=== PATIENT | male | born 1935 | race Caucasian/White ===

== ENCOUNTER → 2022-12-23 | Outpatient (CLI) | payer MEDICARE ==
[2022-12-23 15:06] LABS: African American GFR (CKD) 87 (>60 ml/min/1.73 sqM); Blood Urea Nitrogen 20 mg/dL (9-20); Non-African American GFR(CKD) 75 (>60 ml/min/1.73 sqM)
--- NOTE | 2022-12-24 09:08 | CT ---
EXAMINATION TYPE: CT ChestAbdPelvis w con DATE OF EXAM: 12/23/2022 COMPARISON: 11/06/2011 HISTORY: Small cell, B cell lymphoma. Leukopenia. CT DLP: 896.4 mGycm Automated exposure control for dose reduction was used. CONTRAST: CT scan of the chest, abdomen and pelvis is performed with Oral Contrast and with IV Contrast, patien t injected with 100 ml mL of Isovue 300. FINDINGS: LUNGS: There is groundglass dependent areas of attenuation most compatible with dependent atelectasis . Mild centrilobular emphysematous changes are seen. There is interlobular septal thickening seen com patible with pulmonary fibrosis. There are multiple 3 mm or less subpleural micronodules. There is a nodule seen superior segment rig ht lower lobe axial image 32 measuring 4 mm. MEDIASTINUM: There are no greater than 1 cm hilar or mediastinal lymph nodes. There is shotty hilar mediastinal adenopathy measuring short axis less than 1 cm. Heart is enlarged and cardiac leads are n oted. No significant atherosclerotic change of aorta. The aorta measures a maximal dimension 3.4 cm. Main pulmonary trunk measures 2.2 cm. No pericardial effusion is seen. LIVER/GB: A low attenuation liver suggestive of hepatic steatosis. Liver measures 18 cm in length com patible with mild hepatomegaly. PANCREAS: No significant abnormality is seen. SPLEEN: Spleen measures 13 cm at the upper limits of normal. ADRENALS: No significant abnormality is seen. KIDNEYS: No hydronephrosis or nephrolithiasis. Bilateral simple appearing renal cysts are noted. The bladder is nondistended with mild wall thickening. BOWEL: No significant abnormality is seen. Moderate amount of retained fecal debris correlate for co nstipation. Diverticulosis with no CT evidence of diverticulitis. REPRODUCTIVE ORGANS: Prostate is enlarged measuring 6.2 x 5.4 cm. LYMPH NODES: No greater than 1 cm abdominal or pelvic lymph nodes are appreciated. There is a less th an 1 cm short axis lymph nodes seen in the peripancreatic region axial image 63 series #3. OSSEOUS STRUCTURES: Multilevel hypertrophic and degenerative changes of the spine. Grade 1 anterolist hesis L4 and L5 severe multilevel facet arthropathy and numerous vacuum disc seen compatible severe d egenerative disc disease. Suspect multilevel canal stenosis and foraminal encroachment. Bilateral hip arthropathy. OTHER: There is a right-sided fat-containing inguinal hernia. Scarring abnormal small hiatal hernia. Attenuation involving the right inguinal canal which may be related to previous surgery and/or scar. There is areas of muscular atrophy or lateral gluteal region. IMPRESSION: 1. No evidence of pathologic adenopathy. Shotty mediastinal and hilar adenopathy. 2. Hepatomegaly with no focal hepatic mass. There is borderline splenomegaly measuring 13 cm. 3. Multiple 4 mm less pulmonary nodules. No prior exam available for comparison. Findings are most li jennifer benign. Recommend six-month follow-up to confirm stability. 4. COPD and pulmonary fibrosis UIP type. 5. Prostatomegaly correlate with PSA. Mild bladder wall thickening may be related to incomplete diste ntion rather than mild cystitis correlate clinically.
== END | disposition home or self-care (01) ==
LOC: RADCTMAIN 14:14
PROVIDERS: ATTEND Internal Medicine Hematology & Oncology
DX: C83.00 Small cell B-cell lymphoma, unspecified site (principal); J44.9 Chronic obstructive pulmonary disease, unspecified; J84.112 Idiopathic pulmonary fibrosis; N40.0 Benign prostatic hyperplasia without lower urinary tract symptoms; R16.2 Hepatomegaly with splenomegaly, not elsewhere classified; R91.8 Other nonspecific abnormal finding of lung field; R59.0 Localized enlarged lymph nodes; D72.819 Decreased white blood cell count, unspecified; I10 Essential (primary) hypertension; Z71.89 Other specified counseling
CPT/HCPCS: 82565; 84520; 71260; 74177; 36415; Q9967